=== PATIENT | female | born 1995 | race Two or more races ===

== ENCOUNTER 2022-02-21 03:35 | Inpatient (IN) | payer OTHER ==
[~2022-02-21] VITALS: Ht 154.9 cm; Wt 3.2 kg
[2022-02-21] MEDS ORDERED: PRENATAL TABLE1 EAC1 (07:53)
== END 2022-03-07 14:38 | disposition home or self-care (01) | DRG 788 ==
LOC: OB/GYN 03:35 → LDR 03:35 → OB/GYN 02-22 10:55
PROVIDERS: ADMIT Obstetrics & Gynecology; ATTEND Obstetrics & Gynecology
PROC: 4A1HXCZ Monitoring of Products of Conception, Cardiac Rate, External Approach (ICD-10-PCS; 2022-02-21)
PROC: 10D00Z1 Extraction of Products of Conception, Low, Open Approach (ICD-10-PCS; principal; 2022-03-04 17:00)
DX: O60.14X0 Preterm labor third trimester with preterm delivery third trimester, not applicable or unspecified (principal); Z20.822 Contact with and (suspected) exposure to COVID-19; Z3A.36 36 weeks gestation of pregnancy; Z37.0 Single live birth; O36.8330 Maternal care for abnormalities of the fetal heart rate or rhythm, third trimester, not applicable or unspecified